=== PATIENT | male | born 1960 | race Caucasian/White ===

== ENCOUNTER 2016-08-16 07:09 | Day surgery (SDC) | payer BC ==
[2016-08-13 12:54] VITALS: BMI 30.2
[~2016-08-16 07:09] MED LIST: LACTATED RINGERS 1,000 ML IV SCH
[2016-08-16] MEDS ORDERED: LACTATED RINGERS 1,000 ML IV ONE (07:20)
[2016-08-16 07:22] VITALS: RESP 16
[2016-08-16 07:23] VITALS: TEMP 97.8
[2016-08-16 07:30] LABS: Glucose,Whole Blood 212 mg/dL (75-99)
[2016-08-16] MEDS ORDERED: LIDOCAINE 1% INJ 10MG/ML (20 ML MDV) ONE (07:35)
[2016-08-16] MEDS ORDERED: PROPOFOL 10 MG/ML 20 ML VIAL IV ONE (07:35)
--- NOTE | 2016-08-16 07:45 | P.GSHP ---
History of Present Illness H&P Date: 08/16/16 Chief Complaint: History of colon polyps Patient today for colonoscopy. Last colonoscopy was 6 years ago. He had polyps identified and removed at that time. No family history of colon cancer. No rectal bleeding or melena. Past Medical History Past Medical History: Diabetes Mellitus, Hypertension, Osteoarthritis (OA) Additional Past Medical History / Comment(s): hx. colon polyps History of Any Multi-Drug Resistant Organisms: None Reported Past Surgical History: Bariatric Surgery, Cholecystectomy, Orthopedic Surgery Additional Past Surgical History / Comment(s): gastric bypass, carpal tunnel surg., 06-14-15 ANT CERVICAL FUSION AND DECOMPRESION C4-C5,C5-C6 Past Anesthesia/Blood Transfusion Reactions: No Reported Reaction Past Psychological History: No Psychological Hx Reported Smoking Status: Former smoker Past Alcohol Use History: None Reported Additional Past Alcohol Use History / Comment(s): SMOKED X10 YEARS 1 , QUIT 1988 Past Drug Use History: None Reported - Past Family History Mother Family Medical History: Cancer Additional Family Medical History / Comment(s): LUNG CANCER Father Family Medical History: Dementia Medications and Allergies Home Medications Medication Instructions Recorded Confirmed Type Cinnamon Bark [Cinnamon] 500 mg PO DAILY 06/08/15 08/16/16 History Fish Oil/Dha/Epa [Fish Oil 1,200 1 each PO DAILY 06/08/15 08/16/16 History mg Fish Oil] Multivitamin [Men's Multi-Vitamin] 1 each PO DAILY 06/08/15 08/16/16 History Ibuprofen [Advil] 200 mg PO DIRECTED PRN 05/30/16 08/16/16 History metFORMIN HCL [metFORMIN HCL ER] 1,000 mg PO BID 05/30/16 08/16/16 History Lisinopril [Prinivil] 20 mg PO DAILY 05/31/16 08/16/16 History Allergies Allergy/AdvReac Type Severity Reaction Status Date / Time No Known Allergies Allergy Verified 08/16/16 07:22 Surgical - Exam Vital Signs Temp Pulse Resp BP Pulse Ox 97.8 F 63 16 132/73 96 08/16/16 07:21 08/16/16 07:21 08/16/16 07:21 08/16/16 07:21 08/16/16 07:21 Physical exam: General: Well-developed, well-nourished HEENT: Normocephalic, sclerae nonicteric Abdomen: Nontender, nondistended Extremities: No edema Neuro: Alert and oriented Results - Labs Abnormal Lab Results - Last 24 Hours (Table) 08/16/16 Range/Units 07:27 POC Glucose (mg/dL) 212 H (75-99) mg/dL Assessment and Plan (1) History of colon polyps Narrative/Plan: Will proceed with colonoscopy at this time. Status: Acute
--- NOTE | 2016-08-16 07:54 | P.PCN ---
Date of Procedure: 08/16/16 Procedure(s) Performed: PREOPERATIVE DIAGNOSIS: History of colon polyps, screening POSTOPERATIVE DIAGNOSIS: Poor prep PROCEDURE: Colonoscopy aborted ANESTHESIA: MAC SURGEON: Manuel Vee M.D. SPECIMENS: None ENDOSCOPIC PROCEDURE: The patient was placed on the endoscopy table in the left decubitus position. The Olympus colonoscope was inserted into the anus and passed under direct visualization to the mid sigmoid colon. Patient had retained solid stool seen throughout that segment. I could not visualize the mucosa. No abnormalities were identified with certainty. I was not able to evaluate any additional colon. The procedure was aborted at that time. Digital rectal examination was normal. The patient was taken to the recovery room in stable condition per anesthesia guidelines. RECOMMENDATIONS: Will require reprep and repeat colonoscopy.
[2016-08-16 08:25] VITALS: BP 111/70; PULSE 63
[2016-08-16 08:38] LABS: Glucose,Whole Blood 202 mg/dL (75-99)
== END 2016-08-16 08:48 | disposition home or self-care (01) ==
LOC: ORWHC2ENDO 07:09
PROVIDERS: ATTEND Surgery
DX: Z12.11 Encounter for screening for malignant neoplasm of colon (principal); Z86.010 Personal history of colon polyps; E11.9 Type 2 diabetes mellitus without complications; M19.90 Unspecified osteoarthritis, unspecified site; I10 Essential (primary) hypertension; Z79.84 Long term (current) use of oral hypoglycemic drugs; Z79.899 Other long term (current) drug therapy; Z87.891 Personal history of nicotine dependence
CPT/HCPCS: J2001; J2704; G0105

== ENCOUNTER → 2017-08-30 | Outpatient (CLI) | payer BC ==
[2017-08-30 12:47] LABS: Anisocytosis Slight; Basophils # (A) 0.1 k/uL (0-0.2); Basophils % (A) 1 %; Eosinophils # (A) 0.1 k/uL (0-0.7); Eosinophils % (A) 2 %; HCT 34.2 % (39.0-53.0); HGB 10.7 gm/dL (13.0-17.5); Hypochromasia Slight; Lymphocytes # (A) 2.5 k/uL (1.0-4.8); Lymphocytes % (A) 29 %; MCH 26.5 pg (25.0-35.0); MCHC 31.2 g/dL (31.0-37.0); MCV 84.9 fL (80.0-100.0); Mean Platelet Volume 6.9; Monocytes # (A) 0.5 k/uL (0-1.0); Monocytes % (A) 6 %; Neutrophils # (A) 5.2 k/uL (1.3-7.7); Neutrophils % (A) 60 %; Platelet Count 520 k/uL (150-450); RBC 4.02 m/uL (4.30-5.90); RDW 16.6 % (11.5-15.5); WBC 8.6 k/uL (3.8-10.6)
[2017-08-30 12:56] LABS: Prothrombin Time 9.9 sec (9.0-12.0)
[2017-08-30 12:58] LABS: Appearance,Urine Clear (Clear); Bilirubin,Urine Negative (Negative); Blood,Urine Negative (Negative); Color,Urine Yellow; Glucose,Urine (UA) 4+ (Negative); Ketones,Urine Negative (Negative); Leukocyte Esterase,Urine Negative (Negative); Nitrite,Urine Negative (Negative); PH, Urine 6.5 (5.0-8.0); Protein,Urine Negative (Negative); Specific Gravity,Urine 1.024 (1.001-1.035)
[2017-08-30 13:02] LABS: Partial Thromboplastin Time 20.8 sec (22.0-30.0)
[2017-08-30 13:13] LABS: Anion Gap 11 mmol/L; Blood Urea Nitrogen 12 mg/dL (9-20); Calcium 8.7 mg/dL (8.4-10.2); Carbon Dioxide 22 mmol/L (22-30); Chloride 107 mmol/L (98-107); Glucose 276 mg/dL (74-99); Potassium 4.5 mmol/L (3.5-5.1); Sodium 140 mmol/L (137-145)
--- NOTE | 2017-08-30 16:09 | XR ---
EXAMINATION TYPE: XR chest 2V DATE OF EXAM: 08/30/2017 COMPARISON: 06/08/2015 HISTORY: 55-year-old male encounter for other preprocedural examination TECHNIQUE: Frontal and lateral views FINDINGS: The cardiomediastinal silhouette, aorta, and pulmonary vasculature are within normal limits. Strandy lower lung areas of atelectasis. No consolidation or pleural effusion. IMPRESSION: Strandy lower lung areas of atelectasis. Otherwise, no acute cardiopulmonary process.
[2017-09-02 03:27] LABS: Hemoglobin A1C 9.8 % (4.0-6.0)
== END | disposition home or self-care (01) ==
LOC: LABWHC1 12:08
PROVIDERS: ATTEND Orthopaedic Surgery Orthopaedic Surgery of the Spine
DX: Z01.818 Encounter for other preprocedural examination (principal); J98.11 Atelectasis; M50.223 Other cervical disc displacement at C6-C7 level; Z01.812 Encounter for preprocedural laboratory examination
CPT/HCPCS: 36415; 71046; 80048; 81003; 83036; 85025; 85610; 85730; 86850; 86900; 86901; 87070

== ENCOUNTER 2017-09-08 11:26 | Inpatient (IN) | payer BC ==
[2017-09-05 10:04] VITALS: BMI 31.5
[~2017-09-08 11:26] MED LIST changes: +BACITRACIN 50,000 UNIT, POLYMYXIN B 500,000 UNIT in SODIUM CHLORIDE 0.9% IRRIGATIO 1,00... IRRIGATION ONE; +HYDROmorphone 0.5 MG/0.5 ML SYRINGE IVP PRN; -LACTATED RINGERS 1,000 ML IV SCH; +MIDAZOLAM 2 MG/2 ML VIAL IV PRN; +MORPHINE SULFATE 4 MG/ML SYRINGE IV PRN; +ONDANSETRON 4 MG/2 ML VIAL IVP PRN; +ceFAZolin IN SWFI 2 GM/20 ML SYRINGE IVP ONE
[2017-09-08] MEDS: LACTATED RINGERS 1,000 ML IV SCH ×4 (12:12→17:13)
[2017-09-08] MEDS ORDERED: LIDOCAINE 1% 20 ML VIAL (10MG/ML) FOR IV START INTRADERMA ONE (12:12)
[2017-09-08 12:26] LABS: Glucose,Whole Blood 145 mg/dL (75-99)
[2017-09-08] MEDS ORDERED: DEXAMETHASONE SOD PHOS (MDV) 100 MG/10 ML VIAL ONE (13:00)
[2017-09-08] MEDS ORDERED: SUCCINYLCHOLINE CHLORIDE 100 MG/5 ML SYR IV ONE (13:00)
[2017-09-08] MEDS ORDERED: PHENYLEPHRINE-0.9% NACL SYG 1 MG/10 ML SYRINGE ONE (13:00)
[2017-09-08] MEDS ORDERED: MIDAZOLAM 2 MG/2 ML VIAL ONE (13:00)
[2017-09-08] MEDS ORDERED: ePHEDrine SULFATE/0.9% NACL/PF 50 MG/5 ML SYRINGE IV ONE (13:00)
[2017-09-08] MEDS ORDERED: PROPOFOL 10 MG/ML 20 ML VIAL IV ONE (13:00)
[2017-09-08] MEDS ORDERED: LIDOCAINE 1% INJ 10MG/ML (20 ML MDV) ONE (13:00)
[2017-09-08] MEDS ORDERED: fentaNYL (PF) 50 MCG/ML 2 ML AMP ONE (13:00)
[2017-09-08] MEDS ORDERED: LACTATED RINGERS 1,000 ML IV ONE ×2 (13:40)
[2017-09-08] MEDS ORDERED: GELATIN SPONGE,ABSORB (LARGE) 1 EACH SPONGE MISCELLANE ONE (13:41)
[2017-09-08] MEDS ORDERED: BUPIVACAINE (PF) 0.25% 30 ML VIAL SQ ONE (13:42)
[2017-09-08] MEDS ORDERED: THROMBIN (BOVINE) 5,000 UNIT VIAL MISCELLANE ONE (13:42)
[2017-09-08] MEDS ORDERED: BENZOCAINE/MENTHOL LOZENG 1 EACH LOZENGE MUCOUS MEM PRN (14:56)
[2017-09-08] MEDS ORDERED: HYDROmorphone 2 MG/ML 1 ML SYRINGE IVP PRN (14:56)
[2017-09-08] MEDS ORDERED: MAGNESIUM HYDROXIDE 2,400 MG/10 ML CUP PO PRN (14:56)
[2017-09-08] MEDS ORDERED: HYDROcodone/APAP 5-325MG 1 EACH TAB PO PRN (14:56)
[2017-09-08] MEDS ORDERED: DIAZEPAM 5 MG TAB PO PRN (14:56)
[2017-09-08] MEDS: HYDROmorphone 2 MG/ML 1 ML SYRINGE IVP ONE ×4 (15:04→15:19)
[2017-09-08] MEDS ORDERED: HYDROmorphone 2 MG/ML 1 ML SYRINGE IVP ONE ×2 (15:04→15:12)
--- NOTE | 2017-09-08 15:05 | P.OP ---
Date of Procedure: 09/08/17 Preoperative Diagnosis: Herniated nucleus pulposis C6 7 Right upper extremity radiculopathy with weakness History of prior anterior cervical fusion C4 5 and C5 6 Postoperative Diagnosis: Same Anesthesia: GETA Pathology: none sent Condition: stable Disposition: PACU Description of Procedure: BRIEF OPERATIVE NOTE Preoperative Diagnosis: Herniated nucleus pulposis C67, right upper extremity radiculopathy with weakness, history of prior cervical decompression and fusion C4 5 C5 6 Postoperative Diagnosis: Same Procedure: Anterior cervical decompression and fusion C6 7 Local autogenous bone grafting for use within the interbody graft Placement of interbody graft C6 7 Application of anterior device with screws at C6 7 Surgeon: Dr. Whipple Machine Fitter: Fabio Coleman is present throughout the entire the case persistence during positioning, dissection, exposure, visualization, and all crucial elements of the case as well as closure. Anesthesia: General anesthesia Estimated blood loss: Approximately 20 mL Complications: None apparent Components implanted: K2M stand-alone interbody cage with 3 screws 1 mL of DBX bone putty to supplemental local autogenous bone graft Disposition: To recovery room in good stable condition. OPERATIVE INDICATIONS The patient has had long-standing issues in their neck and upper extremities. In the past he had undergone anterior cervical discectomy and fusion at C4 5 and C5 6 approximately 4-5 years ago and had done very well with that procedure. It had given him significant improvement in his neck and upper extremity symptoms. However over the past several months he has been having worsening pain in his neck and his right upper extremity. He went through conservative treatment and eventually had an MRI which showed a large new disc herniation at C6 7 with progressive degeneration at C6 7 which correlated well with his neck and upper extremity symptoms. The patient has been through conservative treatment. He is not having prolonged benefit despite aggressive conservative treatment. We discussed various treatment options including surgery, and the patient wishes to proceed with surgery We discussed the risk, patient's alternatives and benefits of surgery including but not limited to, risk of bleeding risk of infection, risk of need for further surgery, risk of decreased, loss of motion, muscle function, malunion nonunion, hardware failure , nerve damage, paralysis, heart attack, and . OPERATIVE SUMMARY After discussing all the risks, patient alternatives and benefits at length, the patient elected to proceed with surgical intervention, signed informed consent, and presented for their procedure. The patient was seen and examined in the preoperative holding area and the surgical site was marked. The patient was given antibiotics and brought to the operating room. The patient was positioned on the operating room table in a supine position being careful to pad any bony prominences and pressure points. The patient was sedated and intubated by anesthesia in standard fashion. Once the airway and C- spine were stabilized the patient's arms were padded and tucked at her side, with her shoulders gently taped. The head was placed in a donut pad with the neck in good neutral alignment and position. We were careful to maintain the patient's cervical spine and good neutral alignment and position throughout. The patient was prepped and draped in a normal standard fashion. An appropriate timeout and keystone protocol performed. We were able to proceed with the surgery. The local wound area was infiltrated with local anesthetic. An incision was made transversely approximately 2-1/2 cm over the appropriate levels below his prior incision and over the C6 7 level.. Dissection was taken down subcutaneously to the level of the platysma which was split in line with its fibers. Dissection was taken with a carotid approach, with the trachea and esophagus medial and the carotid sheath laterally. We dissected down to the anterior surface of the vertebral bodies. Intraoperative x-ray was taken which showed a marker at the appropriate level below the level of the prior plate which ended at C6 and in the new disc at C6 7. With the appropriate level positively confirmed, we were able to proceed with discectomy at the appropriate levels of C6 7. All of the operative levels were exposed appropriately. The patient had all their twitches back, and there was no evidence of recurrent laryngeal issue. The wound was copiously irrigated and suctioned dry as had been done periodically throughout the case. There were some anterior osteophytes which were stripped down and removed with a rongeur. The bone was saved for local autogenous bone grafting to be used later in the case as bone graft within the cage. At the appropriate level of C6 7, I established an annulotomy with an 11 blade scalpel. A discectomy was performed with a combination of pituitary rongeurs, curettes, a high-speed bur, and Kerrison rongeurs. The posterior longitudinal ligament was taken down as were any posterior osteophytes. Note was made of a large right paracentral and foraminal disc herniation with extruded fragment. I was able to remove the herniation and extruded fragment drains decompression. This gave good central and bilateral foraminal decompression. There is no evidence of any dural tear or leak. The endplates were prepared with a high-speed bur. With the endplates in good parallel position, I was able to size for the appropriate size interbody graft. The wound was irrigated and suctioned dry the graft was prepared and malleted into position. It had good alignment and position with the anterior surface flush with the anterior surface of the vertebral bodies. The interbody spacer had been filled with local autogenous bone graft and DBX bone putty. I was able to utilize the drill guides to establish 2 drill holes in the C7 vertebral body. 2 screws were placed into C7. Drill guide was removed and I established a drill hole into C6 vertebral body. One screw was placed into the C6 vertebral body in good alignment good position with good bony purchase. All the screws had good alignment and position with excellent bony purchase and there were able to be torqued down appropriately with the appropriate torque screwdriver. The construct was checked and found have good stability. With the grafts intact, The construct was checked and found to be stable. Intraoperative x-ray was taken which showed good alignment and position of the implants at the appropriate levels. There was no evidence of any dural tear or leak. Good hemostasis was maintained. The wound was copiously irrigated and suctioned dry as had been done periodically throughout the case. The platysma was closed with absorbable suture. The subcutaneous tissue was closed. The subcuticular tissue was closed with absorbable suture. The wound was cleaned and dried and dressed appropriately. A soft cervical collar was placed appropriately. The patient was woken up by anesthesia, extubated, transferred back gently to their hospital bed and brought to the recovery room in good stable condition. The patient will be admitted to the hospital for appropriate postoperative care , medical management and monitoring. We will continue to follow them closely about the postoperative course.
[2017-09-08] MEDS: HYDROmorphone 2 MG/ML 1 ML SYRINGE IVP PRN ×3 (15:17→21:56)
[2017-09-08] MEDS: HYDROmorphone 2 MG/ML 1 ML SYRINGE IV ONE ×2 (15:40→15:50)
[2017-09-08] MEDS: MIDAZOLAM 2 MG/2 ML VIAL IV ONE ×2 (15:58→16:37)
[2017-09-08] MEDS: SODIUM CHLORIDE 0.9% 1,000 ML IV SCH ×2 (17:13→17:23)
[2017-09-08] MEDS: metFORMIN 500 MG TAB PO SCH (17:41)
[2017-09-08 17:42] LABS: Glucose,Whole Blood 215 mg/dL (75-99)
[2017-09-08] MEDS: ceFAZolin IN SWFI 2 GM/20 ML SYRINGE IVP SCH ×2 (17:44→23:13)
--- NOTE | 2017-09-08 19:28 | XR ---
Cervical spine HISTORY: Needle localization Single lateral view of the cervical spine submitted. Exam correlated to previous 06/14/2015. Patient is status post anterior cervical fusion and discectomy at C4-C6 as on prior. The exam is over penetrated, lower cervical spine is not well seen. There is a needle present immediately distal to th e anterior fixation plate likely at the C6-7 disc space level. Alignment is stable. Endotracheal tube is also present. IMPRESSION: Orthopedic localization as described
--- NOTE | 2017-09-08 19:32 | XR ---
Cervical spine HISTORY: Hardware placement Single lateral cervical spine view submitted and correlated to previous of same date earlier time. Needle has been removed. Patient shows anterior cervical fusion and discectomy change at C4-C6 as on prior. Lower cervical spine is obscured. There are overlying leads present. Endotracheal tube is agai n noted. Suspect intravertebral material at C6-7, correlate. IMPRESSION: Orthopedic follow-up.
[2017-09-08] MEDS: HYDROcodone/APAP 7.5-325MG 1 EACH TAB PO PRN (20:27)
[2017-09-09] MEDS: HYDROmorphone 2 MG/ML 1 ML SYRINGE IVP PRN ×3 (01:14→07:26)
[2017-09-09 02:17] VITALS: PULSE 70
[2017-09-09] MEDS: HYDROcodone/APAP 7.5-325MG 1 EACH TAB PO PRN (05:11)
[2017-09-09] MEDS: LACTATED RINGERS 1,000 ML IV SCH (05:28)
[2017-09-09] MEDS: metFORMIN 500 MG TAB PO SCH (07:24)
[2017-09-09 07:27] LABS: Glucose,Whole Blood 177 mg/dL (75-99)
[2017-09-09 08:11] VITALS: BP 137/76; RESP 17; TEMP 97.2
--- NOTE | 2017-09-09 08:36 | P.DS ---
Providers Date of admission: 09/08/17 11:26 Expected date of discharge: 09/09/17 Attending physician: Yousif Whipple Primary care physician: Lisa Swann - Discharge Diagnosis(es) (1) Radiculopathy affecting upper extremity Current Visit: Yes Status: Acute (2) Lower extremity weakness Current Visit: Yes Status: Acute (3) History of cervical spinal arthrodesis Current Visit: Yes Status: Acute (4) Herniated nucleus pulposus, C6-7 Current Visit: Yes Status: Acute Hospital Course: This is a pleasant 57-year-old male who is well known to our service who presented with C6-7 herniated nucleus pulposus, right upper extremity radiculopathy with weakness, and history of previous cervical fusion C4-5 and C5 -6 who failed outpatient conservative therapy. He was admitted for an anterior cervical decompression and fusion at C6-7. The patient tolerated the procedure well and did well postoperatively. His pain is been well-controlled while in the hospital. He has been ambulating the hallways numerous times without difficulty. He states he is ready for discharge home. Condition on day of discharge stable. Patient will be discharged home.P Jennifer was cleared preoperatively for surgery by Dr. Swann. Patient currently denies any nausea, vomiting, fever, or chills. Patient is eating and voiding freely without difficulty. Patient may shower Tegaderm dressing intact. Patient may remove Tegaderm dressing in 3 days and shower without a dressing at that time. Patient should keep Steri-Strips intact and allow them to fall off naturally. Patient should refrain from driving until at least after their first follow-up appointment in the office. Patient should avoid excessive neck flexion, extension, rotation, and lateral sidebending; no overhead lifting; no lifting greater than 10 pounds. Patient may continue her soft cervical collar for comfort and support as needed. Patient will be given a prescription for [place] 10 mg/325 mg 1 tab every 8 hours as needed for pain, dispense #60 at discharge. He may resume all regular home medications but should avoid Aleve and other anti-inflammatory medications over the next 6 weeks. Physical Exam on day of discharge: Patient is awake, alert, and oriented 3 Vital signs stable Good chest excursion with deep inspiration and expiration Abdomen soft nontender No signs or symptoms of DVT; no calf pain Full range of motion of the cervical spine with adequate flexion, extension, and bilateral rotation Senior Vice President strength, thumb strength, interosseous strength, biceps strength, triceps strength, and shoulder strength positive sustained bilaterally Soft cervical collar intact Incision is clean, dry, and intact; no erythema, purulence, or signs of infection Tegaderm dressing and non-stick Telfa intact Procedures: Anterior cervical decompression fusion C6-7 Patient Condition at Discharge: Stable Plan - Discharge Summary Discharge Rx Participant: Yes New Discharge Prescriptions: New HYDROcodone/APAP 10-325MG [[place] 10] 1 each PO Q8H PRN #60 tab PRN Reason: Pain No Action Multivitamin [Men's Multi-Vitamin] 1 tab PO DAILY Fish Oil/Dha/Epa [Fish Oil 1,200 mg Fish Oil] 1 cap PO DAILY Cinnamon Bark [Cinnamon] 500 mg PO DAILY metFORMIN HCL [metFORMIN HCL ER] 1,000 mg PO BID Lisinopril [Prinivil] 20 mg PO QAM Atorvastatin [Lipitor] 10 mg PO DAILY Naproxen Sodium [Aleve] 220 mg PO BID PRN PRN Reason: Pain Venlafaxine HCl [Effexor] 75 mg PO DAILY HYDROcodone/APAP 7.5-325MG [[place] 7.5-325] 1 tab PO Q6HR PRN PRN Reason: Pain Disulfiram [Antabuse] 250 mg PO DAILY Discharge Medication List Cinnamon Bark [Cinnamon] 500 mg PO DAILY 06/08/15 [History] Fish Oil/Dha/Epa [Fish Oil 1,200 mg Fish Oil] 1 cap PO DAILY 06/08/15 [History] Multivitamin [Men's Multi-Vitamin] 1 tab PO DAILY 06/08/15 [History] metFORMIN HCL [metFORMIN HCL ER] 1,000 mg PO BID 05/30/16 [History] Lisinopril [Prinivil] 20 mg PO QAM 05/31/16 [History] Atorvastatin [Lipitor] 10 mg PO DAILY 06/03/17 [History] Disulfiram [Antabuse] 250 mg PO DAILY 09/05/17 [History] HYDROcodone/APAP 7.5-325MG [[place] 7.5-325] 1 tab PO Q6HR PRN 09/05/17 [History] Naproxen Sodium [Aleve] 220 mg PO BID PRN 09/05/17 [History] Venlafaxine HCl [Effexor] 75 mg PO DAILY 09/05/17 [History] HYDROcodone/APAP 10-325MG [[place] 10] 1 each PO Q8H PRN #60 tab 09/09/17 [Rx] Follow up Appointment(s)/Referral(s): Fabio Cuadra, DAVION [PHYSICIAN SAFETY PROFESSIONAL] - 2 Weeks (Patient may follow-up with Fabio Cuadra PA-C or Dr. Jose Whipple at [facility] in 2-3 weeks following discharge. ) Activity/Diet/Wound Care/Special Instructions: 1. Patient may shower with Tegaderm dressing intact. 2. Patient may remove Tegaderm dressing in 3 days and shower without a dressing at that time. 3. Patient should keep Steri-Strips intact and allow them to fall off naturally. 4. Patient should refrain from driving until at least after their first follow- up appointment in the office. 5. Patient should avoid excessive cervical flexion, extension, rotation, and sidebending; avoid overhead lifting; no lifting greater than 10 pounds 6. Take medications as prescribed 7. Do not soak in tub Discharge Disposition: HOME SELF-CARE
[2017-09-09] MEDS ORDERED: DISULFIRAM 250 MG PO SCH (09:00)
[2017-09-09] MEDS ORDERED: LISINOPRIL 20 MG TAB PO SCH (09:00)
[2017-09-09] MEDS ORDERED: ATORVASTATIN 10 MG TAB PO SCH (09:00)
[2017-09-09] MEDS ORDERED: VENLAFAXINE HCL 75 MG TAB PO SCH (09:00)
[2017-09-09] MEDS ORDERED: SENNOSIDES-DOCUSATE SODIUM 1 EACH TAB PO SCH (09:00)
[2017-09-09] MEDS ORDERED: MULTIVITAMINS, THERA 1 EACH TAB PO SCH (12:00)
== END 2017-09-09 11:45 | disposition home or self-care (01) | DRG 473 ==
LOC: 2ORMAIN 11:26 → 3SUR 17:03
PROVIDERS: ADMIT Orthopaedic Surgery Orthopaedic Surgery of the Spine; ATTEND Orthopaedic Surgery Orthopaedic Surgery of the Spine
PROC: 0RG10A0 Fusion of Cervical Vertebral Joint with Interbody Fusion Device, Anterior Approach, Anterior Column, Open Approach (ICD-10-PCS; principal; 2017-09-08 13:00)
PROC: 0RT30ZZ Resection of Cervical Vertebral Disc, Open Approach (ICD-10-PCS; principal; 2017-09-08 13:00)
DX: M50.123 Cervical disc disorder at C6-C7 level with radiculopathy (principal); E11.9 Type 2 diabetes mellitus without complications; Z79.84 Long term (current) use of oral hypoglycemic drugs; Z98.1 Arthrodesis status; Z79.891 Long term (current) use of opiate analgesic; Z79.899 Other long term (current) drug therapy; E66.9 Obesity, unspecified; F32.9 Major depressive disorder, single episode, unspecified; I10 Essential (primary) hypertension; Z98.84 Bariatric surgery status
CPT/HCPCS: 72020; 86850; 86900; 86901

== ENCOUNTER → 2017-11-05 | Outpatient (CLI) | payer BC | END | disposition home or self-care (01) | LOC: LABPAT 10:30 | PROVIDERS: ATTEND Orthopaedic Surgery | DX: Z01.812 Encounter for preprocedural laboratory examination (principal) | CPT/HCPCS: 87070 ==

== ENCOUNTER 2017-11-18 06:16 | Inpatient (IN) | payer BC ==
[2017-11-05 12:44] VITALS: BMI 31.5
--- NOTE | 2017-11-17 09:09 | HP ---
HISTORY AND PHYSICAL CHIEF COMPLAINT: Right knee pain. 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 He is having a difficult time with normal function and activities. He has tried medications and injections with only partial temporary relief. He notes the pain related to his osteoarthrosis fairly limits him. PAST MEDICAL HISTORY: Significant for hypertension and hypercholesterolemia along with arthritis and non- insulin-dependent diabetes. PAST SURGICAL HISTORY: Significant for carpal tunnel release, cholecystectomy, gastric bypass surgery and cervical spine surgery. CURRENT MEDICATIONS: 1. Atorvastatin. 2. Lisinopril. 3. Metformin. ALLERGIES: He denies drug allergies. FAMILY HISTORY: Significant for dementia and cancer. SOCIAL HISTORY: Significant for previous tobacco use; however, he quit in 1989. REVIEW OF SYSTEMS: Sixteen-point review of systems otherwise reviewed and is noncontributory. PHYSICAL EXAMINATION: On examination, the patient is approximately 5 feet 10 inches, 215 pounds of endomorphic habitus. HEENT exam is nonfocal. Neck is supple. He has painless passive motion of the right hip. Straight leg raise is negative. Active motion right knee -8 to 105 degrees of flexion. He is tender about the medial and lateral joint line. He has a trace effusion. Collaterals are stable, Filiberto's 1+, Ming's is equivocal. He has genu varum alignment. His distal neurovascular exam appears intact in the right lower extremity. Weightbearing notch lateral and Merchant views of the right knee obtained in the office show severe medial and patellofemoral compartment narrowing. IMPRESSION: 1. Right knee severe medial and patellofemoral compartment osteoarthrosis. 2. Increased body mass index. RECOMMENDATIONS: I talked to the patient at length regarding his treatment options. At this point, he is having persistent pain and mechanical symptoms despite conservative measures. After thorough discussion, he opts to proceed with surgery. We will plan to proceed with right total knee arthroplasty. Risks and benefits were discussed at length in layman's terms. We will institute DVT prophylaxis postoperatively. The patient underwent preoperative medical evaluation by Dr. Swann. MMMARIA LUISA / JENNYN: [id number] /
[~2017-11-18 06:16] MED LIST changes: +ACETAMINOPHEN TAB 500 MG TAB PO ONE; -BACITRACIN 50,000 UNIT, POLYMYXIN B 500,000 UNIT in SODIUM CHLORIDE 0.9% IRRIGATIO 1,00... IRRIGATION ONE; +DEXAMETHASONE SOD PHOSPHATE 10 MG/ML 1 ML VIAL IV ONE; -HYDROmorphone 0.5 MG/0.5 ML SYRINGE IVP PRN; +MELOXICAM 7.5 MG TAB PO ONE; -MORPHINE SULFATE 4 MG/ML SYRINGE IV PRN; +MORPHINE SULFATE 4MG/4ML SYRG IV PRN; +ONDANSETRON 4 MG/2 ML VIAL IVP ONE; -ONDANSETRON 4 MG/2 ML VIAL IVP PRN; +TRANEXAMIC ACID 1,000 MG in SODIUM CHLORIDE 0.9% 50 ML IVPB ONE
[2017-11-18] MEDS: LACTATED RINGERS 1,000 ML IV SCH (07:01)
[2017-11-18] MEDS ORDERED: fentaNYL (PF) 50 MCG/ML 2 ML AMP ONE ×2 (07:13→08:05)
[2017-11-18 07:15] LABS: Glucose,Whole Blood 133 mg/dL (75-99)
[2017-11-18 07:24] LABS: Basophils # (A) 0.1 k/uL (0-0.2); Basophils % (A) 1 %; Eosinophils # (A) 0.2 k/uL (0-0.7); Eosinophils % (A) 3 %; HCT 35.1 % (39.0-53.0); HGB 11.4 gm/dL (13.0-17.5); Lymphocytes # (A) 2.2 k/uL (1.0-4.8); Lymphocytes % (A) 36 %; MCH 26.1 pg (25.0-35.0); MCHC 32.4 g/dL (31.0-37.0); MCV 80.5 fL (80.0-100.0); Mean Platelet Volume 6.5; Monocytes # (A) 0.5 k/uL (0-1.0); Monocytes % (A) 8 %; Neutrophils % (A) 50 %; Platelet Count 439 k/uL (150-450); Prothrombin Time 10.1 sec (9.0-12.0); RBC 4.37 m/uL (4.30-5.90); RDW 15.2 % (11.5-15.5); WBC 6.1 k/uL (3.8-10.6)
[2017-11-18 07:32] LABS: ALT 22 U/L (21-72); AST 20 U/L (17-59); Albumin 3.7 g/dL (3.5-5.0); Alkaline Phosphatase 79 U/L (38-126); Anion Gap 13 mmol/L; Blood Urea Nitrogen 16 mg/dL (9-20); Calcium 8.6 mg/dL (8.4-10.2); Carbon Dioxide 24 mmol/L (22-30); Chloride 104 mmol/L (98-107); Glucose 137 mg/dL (74-99); Potassium 4.3 mmol/L (3.5-5.1); Sodium 141 mmol/L (137-145); Total Bilirubin 0.3 mg/dL (0.2-1.3); Total Protein 6.1 g/dL (6.3-8.2)
[2017-11-18] MEDS ORDERED: ROPIVACAINE 1,100 MG, SODIUM CHLORIDE 0.9% 330 ML MISCELLANE PRN ×2 (07:50)
--- NOTE | 2017-11-18 07:51 | P.ONQ ---
Anesthesiology Proc Note - PNB - Peripheral Nerve Block Performed Right Adductor Canal Indication: Acute Post-Operative Pain, Requested by physician (Dr Mccracken) Sedation Type: Sedate with meaningful contact maintained Preparation: Sterile Dressing Position: Supine Catheter: Indwelling Needle Types: Other (see comment) (Mac) Needle Size: 100mm (4") Needle Gauge: 21 Technique: Ultrasound (20cc) Blood Aspirated: No Pain Paresthesia on Injection Noted: No Resistance on Injection: Normal Events: Uneventful and Well Tolerated
[2017-11-18] MEDS ORDERED: ROPIVACAINE 246.25 MG, EPINEPHrine 0.5 MG, KETOROLAC 30 MG, cloNIDine HCL/PF 80 MCG, WA... MISCELLANE ONE ×5 (08:03)
[2017-11-18] MEDS ORDERED: ONDANSETRON 4 MG/2 ML VIAL ONE (08:05)
[2017-11-18] MEDS ORDERED: MIDAZOLAM 2 MG/2 ML VIAL ONE (08:05)
[2017-11-18] MEDS ORDERED: ePHEDrine SULFATE/0.9% NACL/PF 50 MG/5 ML SYRINGE IV ONE (08:05)
[2017-11-18] MEDS ORDERED: SODIUM CHLORIDE 0.9% 100 ML BAG ONE (08:05)
[2017-11-18] MEDS ORDERED: PROPOFOL 10 MG/ML 20 ML VIAL IV ONE (08:05)
[2017-11-18] MEDS ORDERED: TRANEXAMIC ACID 1,000 MG/10 ML VIAL ONE (08:05)
[2017-11-18] MEDS ORDERED: LACTATED RINGERS 1,000 ML IV ONE ×2 (08:30→09:59)
[2017-11-18] MEDS ORDERED: ceFAZolin 3,000 MG in SODIUM CHLORIDE 0.9% IRRIGATIO 3,000 ML IRRIGATION ONE (08:53)
[2017-11-18] MEDS ORDERED: ACETAMINOPHEN TAB 325 MG TAB PO PRN (09:49)
[2017-11-18] MEDS ORDERED: ONDANSETRON 4 MG/2 ML VIAL IVP PRN (09:49)
[2017-11-18] MEDS ORDERED: MAGNESIUM HYDROXIDE 2,400 MG/10 ML CUP PO PRN (09:49)
[2017-11-18] MEDS ORDERED: HYDROcodone/APAP 7.5-325MG 1 EACH TAB PO PRN (09:49)
[2017-11-18] MEDS ORDERED: MORPHINE SULFATE 4MG/4ML SYRG IV PRN ×2 (09:49)
[2017-11-18] MEDS ORDERED: NALOXONE 0.4 MG/ML 1 ML VIAL IV PRN (09:49)
--- NOTE | 2017-11-18 10:26 | P.OP ---
Date of Procedure: 11/18/17 Preoperative Diagnosis: Right knee severe tricompartmental osteoarthrosis Postoperative Diagnosis: Same Procedure(s) Performed: Right total knee ocmtrysbtlfq-[id number]-ryaxezss retaining Implants: Depuy Attune size 6 cemented femoral component, size 6 cemented tibial component , 9 mm articular surface, 35 mm cemented patellar component. This is a cruciate retaining implant. Anesthesia: regional, local, spinal Surgeon: Jonn Mccracken Electrical Controls Technician #1: Chao Tidwell Estimated Blood Loss (ml): 50 Pathology: other (Bone fragments) Disposition: PACU Indications for Procedure: The patient's a 57-year-old male who presents with progressive right knee pain secondary to osteoarthrosis despite extensive conservative measures. A discussion of the risks and benefits of operative intervention versus continued conservative measures was made with patient. He opted to proceed with surgery. Operative risks to include infection, neurovascular injury, development of blood clots, possible component loosening, possible component failure and need for subsequent procedures was discussed. Informed consent was obtained. Operative Findings: As below Description of Procedure: The patient was brought to the operating room, and after induction of spinal anesthesia the right lower extremity was prepped and draped in a normal fashion. The tourniquet was inflated to 270 mmHg. A longitudinal incision extending 3 finger breaths above the superior pole of the patella extending to the medial aspect the tibial tubercle was then made. Skin and subcutaneous tissues were divided sharply. Electrocautery was used for hemostasis. A medial parapatellar arthrotomy was then performed. The medial soft tissues to include the superficial and deep portions of the medial collateral ligament as well as the medial hamstring tendons were elevated subperiosteally. The posterior medial capsule was also elevated as he had significant varus deformity. The proximal medial tibial osteophytes were carefully removed. The patella was everted. A portion of the retropatellar fat pad was excised sharply. The knee was then flexed. The anterior cruciate ligament sacrificed. Blunt retractors were placed. A starting hole was made in the distal femur 1 cm anterior to the posterior cruciate ligament origin. An intramedullary femoral guide was gently inserted planning on 5 valgus distal cut with 9 mm distal resection. The cutting block was pinned in place. The distal cut was then made. The posterior referencing sizing guide was utilized. I felt size 6 was most appropriate. 3 of external rotation was built into the system and verified off the trans-epicondylar axis and the posterior condyles. The cutting block was pinned in place. The anterior, posterior, and chamfer cuts were then made. The bone fragments were removed. The slot cut was made with the appropriate guide. The trial size 6 femoral component was placed and was fully seated. There is good anterior to posterior medial to lateral fit. The distal peg holes were drilled. The trial component was then removed. Attention was then paid towards preparing the proximal tibia. An extra medullary guide was utilized in line with the tibial shaft and second metatarsal distally. I planned on 7 posterior slope. I planned on 2 mm resection from the medial compartment. The cutting block was pinned in place. The posterior cruciate ligament was protected with a retractor. Proximal tibial cut was made in the bone removed in one fragment. The remnants of the medial and lateral menisci were excised the capsule junction with electrocautery. The tibia sized most appropriate at size 6. The trial femoral and tibial components were placed along with a 9 mm articular surface. I was able to obtain full flexion and extension with good stability with varus and valgus stress. After several flexion and extension cycles, the tibial rotation was marked with electrocautery in line with the medial one third of the tibial tubercle. Attention was then paid towards preparing the patella. A patella reamer was utilized taking this down to 14 mm of bone stock. A good flush cut was made. The patella sized most appropriately at 35 mm's. The peg holes were drilled. The trial components placed. The knee was taken through a range of motion. I had good patellofemoral tracking with no hands technique. The trial components were then removed. The posterior osteophytes off the distal femur were carefully removed with a curved osteotome. Tibia was prepared in the appropriate rotation with appropriate drill and keel punch. The flexion and extension gaps were checked and felt to be symmetric. The posterior soft tissues were injected with ropivacaine. The bony surfaces were prepared with pulsatile lavage and dried. Additional drill holes were made in the proximal medial tibia to facilitate cement interdigitation. The tibial component was cemented in placed and was fully seated. Excess cement was removed. The femoral component cemented in placed and was fully seated. Excess cement was removed. A trial 9 mm articular surface was placed and the knee was put in full extension. The patella component was cemented placed and was fully seated. Excess cement was removed. After the cement had sufficiently hardened , the knee was again taken through a range of motion. I was able to obtain full flexion and extension with good stability with varus and valgus stress. The trial 9 mm articular surface was removed and the final one inserted. Care taken to avoid any soft tissue interposition. Pulsatile lavage was again utilized. The tourniquet was deflated and final hemostasis was obtained with electrocautery. The second dose of IV TXA was given. The medial parapatellar arthrotomy was closed with running #2 Ethibond suture. A deep drain was placed exiting laterally. The subcutaneous tissues were reapproximated interrupted 2- 0 Vicryl sutures. The skin was reapproximated with 3-0 subcuticular strata fix suture. Skin tape and adhesive was applied. A sterile dressing was applied. Patient was awoken from sedation and transferred to recovery room in good condition. Blood loss was estimated 50 mL. No complications were incurred. Sponge and needle counts were correct in the case.
[2017-11-18 10:46] LABS: Glucose,Whole Blood 140 mg/dL (75-99)
--- NOTE | 2017-11-18 10:51 | XR ---
Right knee HISTORY: Status post right knee arthroplasty 2 views of the right knee. No comparisons Patient is status post right knee arthroplasty. There is anatomic alignment. Indwelling surgical drai n is present. Lucency present in the soft tissues compatible with postop state. IMPRESSION: Orthopedic follow-up
[2017-11-18 11:19] VITALS: RESP 16
[2017-11-18] MEDS: traMADol 50 MG TAB PO SCH ×3 (12:21→22:09)
[2017-11-18] MEDS: ceFAZolin IN SWFI 2 GM/20 ML SYRINGE IVP SCH (17:03)
--- NOTE | 2017-11-18 17:10 | P.CONS ---
History of Present Illness - Reason for Consult Recommendations diabetic diabetic medications. - History of Present Illness Patient is alert and pleasant 57-year-old gentleman came in for elective right knee although less is excessively underwent surgery patient has a drain in place patient has a Wiggins catheter in place patient did pass gas did not move his bowels yet and the patient pain is well controlled. Patient denied any fever chills nausea vomiting patient the will be resumed on regular diet patient uses metformin twice a day which will be resumed and patient is on lisinopril to prevent perioperative hypotension lisinopril will be held Review of Systems REVIEW OF SYSTEMS: CONSTITUTIONAL: No fever, no malaise, no fatigue. HEENT: No recent visual problems or hearing problems. Denied any sore throat. CARDIOVASCULAR: No chest pain, orthopnea, PND, no palpitations, no syncope. PULMONARY: No shortness of breath, no cough, no hemoptysis. GASTROINTESTINAL: No diarrhea, no nausea, no vomiting, no abdominal pain. Normoactive bowel sounds. NEUROLOGICAL: No headaches, no weakness, no numbness. HEMATOLOGICAL: Denies any bleeding or petechiae. GENITOURINARY: Denies any burning micturition, frequency, or urgency. MUSCULOSKELETAL/RHEUMATOLOGICAL: Denies any joint pain, swelling, or any muscle pain. ENDOCRINE: Denies any polyuria or polydipsia. The rest of the 14-point review of systems is negative. Past Medical History Past Medical History: Diabetes Mellitus, Hypertension, Osteoarthritis (OA) Additional Past Medical History / Comment(s): hx. colon polyps History of Any Multi-Drug Resistant Organisms: None Reported Past Surgical History: Bariatric Surgery, Cholecystectomy, Orthopedic Surgery Additional Past Surgical History / Comment(s): gastric bypass, carpal tunnel surg., 06-14-15 ANT CERVICAL FUSION AND DECOMPRESION C4-C5,C5-C6 Past Anesthesia/Blood Transfusion Reactions: No Reported Reaction Past Psychological History: Depression Smoking Status: Former smoker Past Alcohol Use History: None Reported Additional Past Alcohol Use History / Comment(s): SMOKED X10 YEARS 1 PPD, QUIT 1988 Past Drug Use History: None Reported - Past Family History Mother Family Medical History: Cancer Additional Family Medical History / Comment(s): LUNG CANCER Father Family Medical History: Dementia Medications and Allergies Home Medications Medication Instructions Recorded Confirmed Type Cinnamon Bark [Cinnamon] 500 mg PO DAILY 06/08/15 11/18/17 History Fish Oil/Dha/Epa [Fish Oil 1,200 1 cap PO DAILY 06/08/15 11/18/17 History mg Fish Oil] Multivitamin [Men's Multi-Vitamin] 1 tab PO DAILY 06/08/15 11/18/17 History metFORMIN HCL [metFORMIN HCL ER] 1,000 mg PO BID 05/30/16 11/18/17 History Lisinopril [Prinivil] 20 mg PO QAM 05/31/16 11/18/17 History Atorvastatin [Lipitor] 10 mg PO DAILY 06/03/17 11/18/17 History Disulfiram [Antabuse] 250 mg PO DAILY 09/05/17 11/18/17 History HYDROcodone/APAP 7.5-325MG [[place] 1 tab PO Q6HR PRN 09/05/17 11/18/17 History 7.5-325] Naproxen Sodium [Aleve] 220 mg PO BID PRN 09/05/17 11/18/17 History Venlafaxine HCl [Effexor] 75 mg PO DAILY 09/05/17 11/18/17 History Ferrous Sulfate [Feosol] 325 mg PO DAILY 11/05/17 11/18/17 History Rivaroxaban [Xarelto] 10 mg PO DAILY #12 tab 11/18/17 Rx Allergies Allergy/AdvReac Type Severity Reaction Status Date / Time No Known Allergies Allergy Verified 11/18/17 11:37 Physical Exam Vitals: Vital Signs Temp Pulse Pulse Pulse Resp BP BP 11/18/17 15:00 97.0 F L 70 16 126/74 11/18/17 13:15 79 128/70 11/18/17 13:00 72 122/73 11/18/17 12:45 67 127/77 11/18/17 12:30 70 134/88 11/18/17 12:15 65 116/74 11/18/17 12:00 63 111/70 11/18/17 11:45 66 109/68 11/18/17 11:30 97.1 F L 64 16 104/60 11/18/17 11:13 66 16 106/58 11/18/17 10:58 67 18 119/65 11/18/17 10:43 64 16 121/68 11/18/17 10:28 70 16 110/57 11/18/17 10:13 97.8 F 80 12 95/54 11/18/17 07:51 68 16 132/68 11/18/17 07:24 97.9 F 68 18 130/68 Pulse Ox 11/18/17 15:00 99 11/18/17 13:15 11/18/17 13:00 11/18/17 12:45 11/18/17 12:30 11/18/17 12:15 11/18/17 12:00 11/18/17 11:45 11/18/17 11:30 99 11/18/17 11:13 100 11/18/17 10:58 100 11/18/17 10:43 100 11/18/17 10:28 97 11/18/17 10:13 95 11/18/17 07:51 95 11/18/17 07:24 98 Intake and Output 11/18/17 11/18/17 11/18/17 06:59 14:59 22:59 Intake Total 2201 Output Total 1085 200 Balance 1116 -200 Intake: IV 2201 Output: Drainage 80 Right Knee 80 Urine 925 200 Uretheral (Wiggins) 200 Estimated Blood Loss 80 Other: Voiding Method Indwelling Catheter Weight 99.79 kg PHYSICAL EXAMINATION: GENERAL: The patient is alert and oriented x3, not in any acute distress. Well developed, well nourished. HEENT: Pupils are round and equally reacting to light. EOMI. No scleral icterus. No conjunctival pallor. Normocephalic, atraumatic. No pharyngeal erythema. No thyromegaly. CARDIOVASCULAR: S1 and S2 present. No murmurs, rubs, or gallops. PULMONARY: Chest is clear to auscultation, no wheezing or crackles. ABDOMEN: Soft, nontender, nondistended, normoactive bowel sounds. No palpable organomegaly. MUSCULOSKELETAL: No joint swelling or deformity. EXTREMITIES: No cyanosis, clubbing, or pedal edema. NEUROLOGICAL: Gross neurological examination did not reveal any focal deficits. SKIN: No rashes. Results CBC & Chem 7: 11/18/17 07:01 11/18/17 07:01 Labs: Abnormal Lab Results - Last 24 Hours (Table) 11/18/17 11/18/17 11/18/17 Range/Units 06:56 07:01 07:01 Hgb 11.4 L (13.0-17.5) gm/dL Hct 35.1 L (39.0-53.0) % Glucose 137 H (74-99) mg/dL POC Glucose (mg/dL) 133 H (75-99) mg/dL Total Protein 6.1 L (6.3-8.2) g/dL 11/18/17 Range/Units 10:44 Hgb (13.0-17.5) gm/dL Hct (39.0-53.0) % Glucose (74-99) mg/dL POC Glucose (mg/dL) 140 H (75-99) mg/dL Total Protein (6.3-8.2) g/dL Assessment and Plan Plan: -Type 2 diabetes mellitus: Patient will be resumed on metformin Accu-Cheks 3 times a day before meals. -Hypertension: Lisinopril will be held because of above-mentioned reasons -Osteoarthritis and status post right knee surgery pain management due to prophylaxis per primary service. -Depression: Patient's home medications will be resumed
[2017-11-18 17:32] LABS: Glucose,Whole Blood 153 mg/dL (75-99)
[2017-11-18] MEDS: HYDROcodone/APAP 7.5-325MG 1 EACH TAB PO PRN (18:45)
[2017-11-18] MEDS ORDERED: SENNOSIDES-DOCUSATE SODIUM 1 EACH TAB PO SCH (21:00)
[2017-11-18 21:38] LABS: Glucose,Whole Blood 143 mg/dL (75-99)
[2017-11-18] MEDS: metFORMIN 500 MG TAB PO SCH (22:09)
[2017-11-19] MEDS: ceFAZolin IN SWFI 2 GM/20 ML SYRINGE IVP SCH (00:17)
[2017-11-19] MEDS: LACTATED RINGERS 1,000 ML IV SCH (00:17)
[2017-11-19] MEDS: HYDROcodone/APAP 7.5-325MG 1 EACH TAB PO PRN ×3 (01:52→12:48)
--- NOTE | 2017-11-19 06:39 | P.PN ---
Progress Note - Text Progress Note Date: 11/19/17 57 yo male, status post right total knee replacement. Patient received the adductor canal catheter. Ropivacaine 0.2% at 8 mls/hr. Patient was seen today at 6:15 AM. Patient was sitting in bed comfortably. VAS score of 0/10 no complains overnight. Assessment and plan: patient will be sent home with the adductor canal pump. Adequate pain control.
[2017-11-19 07:47] LABS: Basophils # (A) 0.1 k/uL (0-0.2); Basophils % (A) 1 %; Eosinophils # (A) 0.2 k/uL (0-0.7); Eosinophils % (A) 3 %; HCT 31.1 % (39.0-53.0); Lymphocytes # (A) 1.8 k/uL (1.0-4.8); Lymphocytes % (A) 23 %; MCH 25.7 pg (25.0-35.0); MCHC 31.4 g/dL (31.0-37.0); MCV 81.9 fL (80.0-100.0); Mean Platelet Volume 6.7; Monocytes # (A) 0.7 k/uL (0-1.0); Monocytes % (A) 8 %; Neutrophils % (A) 63 %; Platelet Count 351 k/uL (150-450); RDW 15.5 % (11.5-15.5); WBC 7.9 k/uL (3.8-10.6)
[2017-11-19 07:48] LABS: HGB 9.8 gm/dL (13.0-17.5)
[2017-11-19 07:53] LABS: Glucose,Whole Blood 133 mg/dL (75-99)
[2017-11-19 08:10] VITALS: BP 123/72; PULSE 72; TEMP 98.3
[2017-11-19] MEDS: traMADol 50 MG TAB PO SCH ×2 (08:51→12:36)
[2017-11-19] MEDS: metFORMIN 500 MG TAB PO SCH (08:52)
[2017-11-19] MEDS ORDERED: RIVAROXABAN 10 MG TAB PO SCH (09:00)
[2017-11-19] MEDS ORDERED: FAMOTIDINE 20 MG TAB PO SCH (09:00)
[2017-11-19] MEDS ORDERED: FERROUS SULFATE 325 MG TAB PO SCH (09:00)
[2017-11-19] MEDS ORDERED: ATORVASTATIN 10 MG TAB PO SCH (09:00)
[2017-11-19] MEDS ORDERED: VENLAFAXINE HCL 75 MG TAB PO SCH (09:00)
--- NOTE | 2017-11-19 11:22 | P.PN ---
Subjective Progress Note Date: 11/19/17 Principal diagnosis: Status post right total knee arthroplasty Patient is seen today resting in his hospital bed, he is utilizing the CPM. He is done well with therapy, he has urinated on his own. He denies any headaches , lightheadedness, chest pain or shortness of breath. Objective - Vital Signs Vital signs: Vital Signs Temp 98.3 F 11/19/17 07:00 Pulse 72 11/19/17 07:00 Resp 16 11/19/17 07:00 BP 123/72 11/19/17 07:00 Pulse Ox 97 11/19/17 07:00 Intake & Output 11/18/17 11/19/17 11/19/17 18:59 06:59 18:59 Intake Total 2201 600 Output Total 1285 525 Balance 916 75 Weight 99.79 kg Intake: IV 2201 Intake, IV Titration 600 Amount Lactated Ringers 1,000 ml 600 @ 50 mls/hr IV .Q20H JOSE Rx#:[id number] Output: Drainage 80 200 Right Knee 80 200 Urine 1125 325 Uretheral (Wiggins) 200 Estimated Blood Loss 80 Other: Voiding Method Indwelling Catheter # Voids 2 - Exam Right lower extremity: Incision is clean, dry, and intact. The prineo tape is in good condition. There is minimal soft tissue swelling and ecchymosis surrounding the medial and lateral aspects of the incision. Calf is soft, no tenderness with palpation. Plantar flexion, dorsiflexion, EHL, FHL are intact. Sensory exam to light touch throughout the extremity is intact, dorsal pedis pulses 2+. - Labs CBC & Chem 7: 11/19/17 06:59 11/18/17 07:01 Labs: Abnormal Lab Results - Last 24 Hours (Table) 11/18/17 11/18/17 11/19/17 Range/Units 17:11 21:36 06:59 RBC 3.80 L (4.30-5.90) m/uL Hgb 9.8 L D (13.0-17.5) gm/dL Hct 31.1 L (39.0-53.0) % POC Glucose (mg/dL) 153 H 143 H (75-99) mg/dL 11/19/17 Range/Units 07:18 RBC (4.30-5.90) m/uL Hgb (13.0-17.5) gm/dL Hct (39.0-53.0) % POC Glucose (mg/dL) 133 H (75-99) mg/dL Assessment and Plan Plan: Assessment: 1. Postop day 1 status post right total knee arthroplasty Plan: 1. Pain control, we'll discharge home on oral medication 2. GI and DVT prophylaxis, Xarelto 10 mg once a day 3. Wound care instructions were discussed 4. Home care and his current therapy after discharge 5. Medical recommendations 6. Discharge planning: Patient will be discharged home today Time with Patient: Less than 30
--- NOTE | 2017-11-19 11:25 | P.DS ---
Providers Date of admission: 11/18/17 06:16 Expected date of discharge: 11/19/17 Attending physician: Jonn Mccracken Consults: 11/18/17 09:49 Consult Physician Routine Consulting Provider: Lisa Swann Consult Reason/Comments: medical management Do you want consulting provider notified?: Yes 11/18/17 10:28 Consult Physician Routine Consulting Provider: Bala Gomez Consult Reason/Comments: medical management Do you want consulting provider notified?: Yes Primary care physician: Lisa Swann Hospital Course: Date of admission: 11/18/2017 Date of discharge: 11/19/2017 Admission diagnosis: Status post right total knee arthroplasty Discharge diagnosis: Same Attending physician: Dr. Mccracken Surgical procedures: Right total knee arthroplasty Brief history: Patient is a 57-year-old male with a history of progressive primary right knee osteoarthritis. At this point patient has failed conservative treatment measures and has opted to proceed with a elective primary right total knee arthroplasty. Hospital course: Details of patient's surgery can be found in operative report. Patient tolerated the procedure well and was subsequently transported to orthopedic floor. Patient's orthopeidc and medical care was provided daily. Patient had daily laboratory tests performed for evaluation of overall blood counts. Patient had daily physical therapy to include strengthening range of motion as well as education with walker ambulation. Patient had daily CPM usage as part of their physical therapy program. Patient was treated with Xarelto for their postoperative DVT prophylaxis during their inpatient stay. Patient was noted to have a relatively uneventful postoperative course. Patient reported satisfactory pain control with oral pain medications by postoperative day 0. Patient showed satisfactory progress with physical therapy. Patient moved steadily through the program and had no difficulty meeting the goals by postoperative day 1. Given patient's otherwise satisfactory course and having met physical therapy goals, plan is to discharge patient home on postoperative day 1. Discharge condition/disposition: Patient will be discharged home in stable condition. Discharge medications: Instructions are given on resumption of patient's normal daily medications per primary care recommendation, in addition patient will be prescribed [place] 7.5 mg/325 mg, tramadol 50 mg, Colace 100 mg, Pepcid 20 mg, Xarelto 10 mg. Discharge instructions: 1. Wound care and infection precautions, keep incision dry and covered while showering, no lotions, creams, moisturizers. No soaking, tubs, pools, hottubs. Do not scrub over the incision. 2. Weight-bear as tolerated with walker / cane until follow-up. 3. Ice and elevate when necessary. Do not exceed 20 minutes per hour with ice pack. 4. Utilize compression sleeve until seen at first follow up appointment. 5. Visiting nursing care. 6. Home physical therapy including home CPM. 7. Pain meds and anticoagulants per prescription. 8. Pain medication has potential to cause constipation. Increase oral fluid and fiber intake. Contact primary care provider if you have not had a bowel movement within 48 hours after discharge 9. No anti-inflammatory medication until discussed at first post operative visit, this including Motrin, Aleve, Mobic, Diclofenac. 10. Follow up in office at 2 weeks postop with Juan Tidwell PA-C 11. Follow up with your primary care doctor 7-10 days after discharge. 12. Contact [facility] with any questions, . Procedures: Right total knee arthroplasty Patient Condition at Discharge: Good Plan - Discharge Summary Discharge Rx Participant: Yes New Discharge Prescriptions: New Rivaroxaban [Xarelto] 10 mg PO DAILY #12 tab Docusate [Colace] 100 mg PO DAILY #30 capsule HYDROcodone/APAP 7.5-325MG [[place] 7.5] 1 - 2 each PO Q6HR PRN #60 tab PRN Reason: Pain traMADol HCl [Ultram] 50 mg PO Q6H PRN #40 tab PRN Reason: Pain No Action Multivitamin [Men's Multi-Vitamin] 1 tab PO DAILY Fish Oil/Dha/Epa [Fish Oil 1,200 mg Fish Oil] 1 cap PO DAILY Cinnamon Bark [Cinnamon] 500 mg PO DAILY metFORMIN HCL [metFORMIN HCL ER] 1,000 mg PO BID Lisinopril [Prinivil] 20 mg PO QAM Atorvastatin [Lipitor] 10 mg PO DAILY Venlafaxine HCl [Effexor] 75 mg PO DAILY Disulfiram [Antabuse] 250 mg PO DAILY Ferrous Sulfate [Feosol] 325 mg PO DAILY Discharge Medication List Cinnamon Bark [Cinnamon] 500 mg PO DAILY 06/08/15 [History] Fish Oil/Dha/Epa [Fish Oil 1,200 mg Fish Oil] 1 cap PO DAILY 06/08/15 [History] Multivitamin [Men's Multi-Vitamin] 1 tab PO DAILY 06/08/15 [History] metFORMIN HCL [metFORMIN HCL ER] 1,000 mg PO BID 05/30/16 [History] Lisinopril [Prinivil] 20 mg PO QAM 05/31/16 [History] Atorvastatin [Lipitor] 10 mg PO DAILY 06/03/17 [History] Disulfiram [Antabuse] 250 mg PO DAILY 09/05/17 [History] Venlafaxine HCl [Effexor] 75 mg PO DAILY 09/05/17 [History] Ferrous Sulfate [Feosol] 325 mg PO DAILY 11/05/17 [History] Rivaroxaban [Xarelto] 10 mg PO DAILY #12 tab 11/18/17 [Rx] Docusate [Colace] 100 mg PO DAILY #30 capsule 11/19/17 [Rx] HYDROcodone/APAP 7.5-325MG [[place] 7.5] 1 - 2 each PO Q6HR PRN #60 tab 11/19/17 [ Rx] traMADol HCl [Ultram] 50 mg PO Q6H PRN #40 tab 11/19/17 [Rx] Follow up Appointment(s)/Referral(s): Lisa Swann MD [Primary Care Provider] - 11/26/17 2:00 pm (please be there at 145pm ) [facility], [NON-STAFF] - Chao Tidwell PAC [PHYSICIAN CARPET INSTALLER] - 12/03/17 2:30 pm Activity/Diet/Wound Care/Special Instructions: Orthopedic Discharge Instructions: 1. Wound care and infection precautions, keep incision dry and covered while showering, no lotions, creams, moisturizers. No soaking, pools, hot tubs. Do not scrub over incision. 2. Weight-bear as tolerated with walker / cane until follow-up. 3. Ice and elevate when necessary. Do not exceed 20 minutes per hour with ice pack. 4. Utilize compression sleeve until seen at first follow up appointment. 5. Visiting nursing care. 6. Home physical therapy including home CPM. 7. Pain meds and anticoagulants per prescription. 8. Pain medication has potential to cause constipation. Increase oral fluid and fiber intake. Contact primary care provider if you have not had a bowel movement within 48 hours after discharge. 9. No anti-inflammatory medication until discussed at first post operative visit, this including Motrin, Aleve, Mobic, Diclofenac. 10. Follow up in office at 2 weeks postop with Juan Tidwell PA-C 11. Follow up with your primary care doctor 7-10 days after discharge. 12. Contact [facility] with any questions, . Discharge Disposition: HOME WITH HOME HEALTH SERVICES
[2017-11-19 11:49] LABS: Glucose,Whole Blood 101 mg/dL (75-99)
[2017-11-19 18:43] LABS: Hemoglobin A1C 7.7 % (4.0-6.0)
== END 2017-11-19 15:23 | disposition home health service (06) | DRG 470 ==
LOC: 2ORMAIN 06:16 → 3SUR 10:17
PROVIDERS: ADMIT Orthopaedic Surgery; ATTEND Orthopaedic Surgery
PROC: 0SRC0J9 Replacement of Right Knee Joint with Synthetic Substitute, Cemented, Open Approach (ICD-10-PCS; principal; 2017-11-18 08:00)
DX: M17.11 Unilateral primary osteoarthritis, right knee (principal); E11.9 Type 2 diabetes mellitus without complications; E78.00 Pure hypercholesterolemia, unspecified; I10 Essential (primary) hypertension; E78.5 Hyperlipidemia, unspecified; F32.9 Major depressive disorder, single episode, unspecified; Z87.891 Personal history of nicotine dependence; Z98.84 Bariatric surgery status; Z79.01 Long term (current) use of anticoagulants; Z79.84 Long term (current) use of oral hypoglycemic drugs; Z79.899 Other long term (current) drug therapy; Z80.1 Family history of malignant neoplasm of trachea, bronchus and lung; Z86.010 Personal history of colon polyps; Z90.49 Acquired absence of other specified parts of digestive tract; Z98.1 Arthrodesis status
CPT/HCPCS: 80053; 83036; 85025; 85610; 88300